=== PATIENT | male | born 1945 | race Caucasian/White ===

== ENCOUNTER 2022-10-08 09:00 | Outpatient (RCR) | payer MEDICARE, BC, SELFPAY ==
--- NOTE | 2022-04-23 13:39 | URNOTE ---
Received request for prior auth for IVIG ([id number]). Pt has Medicare primary and [place] [place]. Prior authorization is not required as services are based on medical necessity and follow medicare guidelines.
[2022-04-25 10:34] VITALS: BP 112/69; PULSE 62; RESP 16; TEMP 36.6; O2SAT 100
[2022-04-25] MEDS: ACETAMINOPHEN 325 MG TABLET 650 MG PO (11:10)
[2022-04-25] MEDS: diphenhydrAMINE 50 MG/ML inj 25 MG IVP (11:10)
[2022-04-25] MEDS: 5 % DEXTROSE 250 ML IV (11:32)
[2022-04-25] MEDS: SODIUM CHLORIDE 0.9 % (FLUSH) 10 ML SYRINGE IVF ×2 (11:32→14:33)
[2022-04-25] MEDS: METHYLPREDNISOLONE SOD SUCC 40 MG/ML IVP (11:47)
[2022-04-25] MEDS: HEPARIN 500 UNIT/5 ML SYRINGE IVF (14:33)
[2022-04-30 07:49] LABS: CMV Quant PCR Interp Detected (Not Detected); Cytomegalovirus Quant Source Whole Blood
[2022-05-07 16:33] LABS: CMV Quant PCR Interp Not Detected (Not Detected); Cytomegalovirus Quant Source Whole Blood
[2022-05-12 14:38] LABS: CMV Quant PCR Interp Not Detected (Not Detected); Cytomegalovirus Quant Source Whole Blood
--- NOTE | 2022-05-17 13:42 | ONC.NURNOTE ---
Addendum entered by Anamika Noriega RN 05/17/22 14:02: Dorita, critical care technician, called specification writer back and states that no orders would be given until the IgG level is resulted. If the level is under 400, they will write a new order for us. Original Note: Patient on schedule for IVIG infusion this coming . No orders are available. LMOM with critical care technician stating that orders are needed in order to infuse.
[2022-05-19 11:08] LABS: CMV Quant PCR Interp Not Detected (Not Detected); Cytomegalovirus Quant Source Whole Blood
[2022-05-23 09:28] LABS: Basophils Percent Auto 1.2 % (0.0-3.0); Eosinophils Percent Auto 0.9 % (0.0-7.0); Hematocrit 30.5 % (37.0-53.0); Hemoglobin* 10.3 gm/dL (13.5-17.5); Lymphocytes Percent Auto 38.7 % (20-44); Mean Corpuscular HGB Conc 34 gm/dL (32-36); Mean Corpuscular Hemoglobin 31 pg (26-34); Mean Corpuscular Volume 91 fL (80-100); Monocytes Percent Auto 15.2 % (0.0-11.0); Platelet Count* 133 K/uL (140-440); Red Blood Count 3.35 m/uL (4.30-5.90); White Blood Count* 3.23 K/uL (4.50-11.00)
[2022-05-23 09:32] LABS: Slide Review Reflex No
[2022-05-23 09:40] LABS: Albumin* 3.9 g/dL (3.3-5.0)
[2022-05-23 09:41] LABS: Chloride* 104 mmol/L (96-114); Potassium* 3.2 mmol/L (3.6-5.1); Sodium* 140 mmol/L (135-149)
[2022-05-23 09:43] LABS: Bilirubin Total* 0.5 mg/dL (0.1-1.5); Estimated Glomerular Filt Rate 77 ml/min
[2022-05-23 09:44] LABS: Alanine Aminotransferase* 19 U/L (4-50); Alkaline Phosphatase* 61 U/L (40-150); Aspartate Amino Transferase* 41 U/L (12-35); Blood Urea Nitrogen* 10 mg/dL (7-30); Calcium* 8.9 mg/dL (8.4-10.6); Carbon Dioxide* 28 mmol/L (20-32); Glucose* 130 mg/dL (60-115); Total Protein* 5.9 g/dL (6.0-8.3)
[2022-05-24 15:10] LABS: Immunoglobulin G 495 mg/dL (768-1632)
[2022-06-27 09:42] VITALS: BP 135/84; PULSE 59; RESP 16; TEMP 36.3; O2SAT 99
[2022-06-27] MEDS: ACETAMINOPHEN 325 MG TABLET 650 MG PO (09:46)
[2022-06-27] MEDS: diphenhydrAMINE 50 MG/ML inj 25 MG IVP ×2 (10:03→12:59)
[2022-06-27] MEDS: METHYLPREDNISOLONE SOD SUCC 40 MG/ML IVP (10:03)
[2022-06-27 12:53] VITALS: BP 163/93; PULSE 59; RESP 18; TEMP 36.6; O2SAT 99
[2022-06-27] MEDS: FAMOTIDINE 10 MG/ML inj 20 MG IVP (13:02)
[2022-06-27] MEDS: METHYLPREDNISOLONE SOD SUCC 62.5 MG/ML (125) 100 MG IVP (13:04)
[2022-06-27 13:06] VITALS: BP 166/84; PULSE 61; RESP 20; TEMP 36.7; O2SAT 100
[2022-06-27 13:20] VITALS: BP 175/91; PULSE 64; RESP 20; TEMP 36.6; O2SAT 99
[2022-06-27 13:30] VITALS: BP 151/87; PULSE 65; RESP 18; TEMP 36.7; O2SAT 99
[2022-06-27] MEDS: HEPARIN 500 UNIT/5 ML SYRINGE IVF (15:14)
[2022-06-27] MEDS: SODIUM CHLORIDE 0.9 % (FLUSH) 10 ML SYRINGE IVF (15:14)
--- NOTE | 2022-06-27 15:56 | ONC.NURNOTE ---
Pt here today for IVIG infusion. Approximately 2 hours into infusion, pt was infusing at 144 ml/hr for 28 min and about to increase to max rate 288 ml/hr, when he noted feeling indigestion/chest pressure/burning in his epigastric/chest. Pt's BP elevated to 180/95, OVSS/Afeb. Stopped infusion; monitored VS q 5 min. Notified Ankita Conroy'jackie ESTEVES; gave 25 mg Benadryl IVP, 20 mg Famotidine IVP and 100 mg Solumedrol IVP; (pt received 650 mg Acetaminophen, 25 mg Benadryl IVP and 40 mg Solumedrol IVP as premeds to IVIG infusion.) Continued to monitor VS; NS IV running wide open. BP improved, pt's symptoms resolved over 1 hr. Restarted IVIG at 72 ml/hr (half of previous rate) and increased incrementally per protocol with VS q 15 min. Pt felt well; no return of symptoms. Pt has monthly labs to monitor IGG levels; no further infusions ordered at this time.
[2022-07-24 09:11] LABS: Eosinophils Percent Auto 5.7 % (0.0-7.0); Hematocrit 32.1 % (37.0-53.0); Hemoglobin* 10.4 gm/dL (13.5-17.5); Immature Granulocytes Pct Auto 0.3 %; Lymphocytes Percent Auto 34.1 % (20-44); Mean Corpuscular HGB Conc 32 gm/dL (32-36); Mean Corpuscular Hemoglobin 28 pg (26-34); Mean Corpuscular Volume 87 fL (80-100); Neutrophils Percent Auto 44.9 % (42.0-72.0); Platelet Count* 133 K/uL (140-440); RDW Coefficient of Variation % 14.2 % (11.5-15.5); Red Blood Count 3.68 m/uL (4.30-5.90); White Blood Count* 2.99 K/uL (4.50-11.00)
[2022-07-24 09:12] LABS: Slide Review Reflex No
[2022-07-25 16:00] LABS: Immunoglobulin G 523 mg/dL (768-1632)
[2022-07-25 19:53] LABS: Absolute CD3 549 cells/uL (660-2200); Absolute CD4:CD8 Ratio 2.64 ratio (0.80-6.17); Absolute CD8 153 cells/uL (150-1050)
[2022-07-27 14:49] LABS: CMV Quant PCR Interp Not Detected (Not Detected); Cytomegalovirus Quant Source Plasma
--- NOTE | 2022-07-29 09:34 | PC.NURSE ---
Called pt with lab results. Leland saw them on his portal. Faxed results to [facility].
[2022-08-23 09:01] LABS: Eosinophils Percent Auto 4.2 % (0.0-7.0); Hematocrit 32.7 % (37.0-53.0); Hemoglobin* 10.7 gm/dL (13.5-17.5); Lymphocytes Percent Auto 28.6 % (20-44); Mean Corpuscular HGB Conc 33 gm/dL (32-36); Mean Corpuscular Hemoglobin 28 pg (26-34); Mean Corpuscular Volume 85 fL (80-100); Neutrophils Percent Auto 52.2 % (42.0-72.0); Platelet Count* 137 K/uL (140-440); RDW Coefficient of Variation % 14.6 % (11.5-15.5); Red Blood Count 3.86 m/uL (4.30-5.90); White Blood Count* 3.85 K/uL (4.50-11.00)
[2022-08-23 09:05] LABS: Slide Review Reflex No
[2022-08-23 09:16] LABS: Albumin* 4.2 g/dL (3.3-5.0)
[2022-08-23 09:18] LABS: Alanine Aminotransferase* 22 U/L (4-50); Alkaline Phosphatase* 62 U/L (40-150); Blood Urea Nitrogen* 14 mg/dL (7-30); Calcium* 9.2 mg/dL (8.4-10.6); Glucose* 105 mg/dL (60-115); Total Protein* 6.3 g/dL (6.0-8.3)
--- NOTE | 2022-08-23 09:19 | ONC.NURNOTE ---
Pt here for monthly labs. Per lab, [facility] changed the name of the test CMV DNA, plasma quant/qual but it has not been built in [facility] yet. Lab order was changed to miscellaneous; results to be found there.
[2022-08-23 09:24] LABS: Aspartate Amino Transferase* 37 U/L (12-35); Bilirubin Total* 0.5 mg/dL (0.1-1.5); Carbon Dioxide* 28 mmol/L (20-32); Chloride* 108 mmol/L (96-114); Estimated Glomerular Filt Rate 77 ml/min; Potassium* 3.6 mmol/L (3.6-5.1); Sodium* 142 mmol/L (135-149)
[2022-08-25 16:20] LABS: Immunoglobulin G 415 mg/dL (768-1632)
[2022-08-25 18:53] LABS: Absolute CD3 1128 cells/uL (660-2200); Absolute CD4:CD8 Ratio 0.69 ratio (0.80-6.17); Absolute CD8 644 cells/uL (150-1050)
--- NOTE | 2022-10-01 11:13 | ONC.NURNOTE ---
Patient called letting [facility] know he was at [facility] for a recheck status post CAR-T transplant and he will need his IVIG. Jacquard Lace Weaver called and requested a new treatment letter. Patient to be called for appointment as soon as it received -no PA needed at this time.
[2022-10-08 09:12] VITALS: BP 133/85; PULSE 64; RESP 16; TEMP 36.6; O2SAT 98
[2022-10-08] MEDS: ACETAMINOPHEN 325 MG TABLET 650 MG PO (09:56)
[2022-10-08] MEDS: METHYLPREDNISOLONE SOD SUCC 40 MG/ML IVP (09:57)
[2022-10-08] MEDS: diphenhydrAMINE 50 MG/ML inj 25 MG IVP (09:58)
[2022-10-08] MEDS: SODIUM CHLORIDE 0.9 % (FLUSH) 10 ML SYRINGE IVF (09:59)
[2022-10-08 13:05] VITALS: BP 184/93; PULSE 67; RESP 18; TEMP 36.6; O2SAT 100
[2022-10-08] MEDS: FAMOTIDINE 10 MG/ML inj 20 MG IVP (14:07)
[2022-10-08 14:55] VITALS: BP 164/84; PULSE 69
--- NOTE | 2022-10-08 16:17 | ONC.NURNOTE ---
Patient put call light on at 1305 after starting IVIG at 1040 complaining of chest pressure. When asking patient to rate it patient states it is a #5 Like ache across upper chest.Blood pressure started out high patient stating that his primary MD has taken his B/P medicine away but he has since put on 20 pounds and has been tracking it at home and its been treading up. Blood pressure started at 170/90 and then patient stated after he went to bathroom it started and then he got back and called us and at that time blood pressure is 184/93-HR 67. IVIG stopped and nurse sat with patient until pain relieved-did give Pepcid 45 minutes after chest pressure started and patient did get a complete relief after getting that. Blood pressure came down a bit but did go up after each episode to bathroom,please see flowsheet of VS. IVIG restarted after 1 hour and just kept at 160/hr without further issues . This is the third incident of chest pressure after 2 hours of IVIG infused. Patient does get pre-meds of Benadryl 25mg IVP-Tylenol 650mg po-Solumedrol 40mg IVP 20 minutes prior to Starting the IVIG Patient is going to talk with primary MD regarding restarting his blood pressure medication but this is third time with chest pressure symptoms.
== END 2022-10-22 23:59 | disposition home or self-care (01) ==
LOC: CCIC 09:00
PROVIDERS: PCP Family Medicine; Referring Provider Family Medicine; Visit Provider Internal Medicine Hematology & Oncology
DX: C83.30 Diffuse large B-cell lymphoma, unspecified site (principal); D80.1 Nonfamilial hypogammaglobulinemia; C82.30 Follicular lymphoma grade IIIa, unspecified site
CPT/HCPCS: 36415; 36591; 80053; 82787; 85025; 86360; 87497; 96365; 96366; 96376; 96413; 96415; 99212; 99213; A9270; J1200; J1459; J1642; J2920; J2930; J7050; S0028

== ENCOUNTER 2023-03-03 13:55 | Outpatient (RCR) | payer MEDICARE, BC, SELFPAY ==
[2022-10-28 14:52] VITALS: BP 168/96; PULSE 64; RESP 18; O2SAT 100
[2022-10-28 14:53] VITALS: BP 173/102
[2022-10-28 14:57] LABS: Basophils Percent Auto 0.7 % (0.0-3.0); Eosinophils Percent Auto 6.5 % (0.0-7.0); Hematocrit 33.9 % (37.0-53.0); Hemoglobin* 11.2 gm/dL (13.5-17.5); Lymphocytes Percent Auto 33.4 % (20-44); Mean Corpuscular HGB Conc 33 gm/dL (32-36); Mean Corpuscular Hemoglobin 28 pg (26-34); Mean Corpuscular Volume 86 fL (80-100); Monocytes Percent Auto 11.5 % (0.0-11.0); Neutrophils Percent Auto 47.9 % (42.0-72.0); Platelet Count* 130 K/uL (140-440); RDW Coefficient of Variation % 17.2 % (11.5-15.5); Red Blood Count 3.94 m/uL (4.30-5.90); White Blood Count* 4.16 K/uL (4.50-11.00)
[2022-10-28 15:01] LABS: Slide Review Reflex No
[2022-10-28 15:17] LABS: Albumin* 4.1 g/dL (3.3-5.0); Chloride* 107 mmol/L (96-114)
[2022-10-28 15:18] LABS: Potassium* 3.5 mmol/L (3.6-5.1); Sodium* 141 mmol/L (135-149)
[2022-10-28 15:20] LABS: Alanine Aminotransferase* 31 U/L (4-50); Alkaline Phosphatase* 68 U/L (40-150); Aspartate Amino Transferase* 52 U/L (12-35); Bilirubin Total* 0.5 mg/dL (0.1-1.5); Blood Urea Nitrogen* 16 mg/dL (7-30); Carbon Dioxide* 28 mmol/L (20-32); Estimated Glomerular Filt Rate 77 ml/min; Glucose* 95 mg/dL (60-115); Total Protein* 6.5 g/dL (6.0-8.3)
[2022-10-30 22:48] LABS: Immunoglobulin G 495 mg/dL (768-1632)
--- NOTE | 2022-11-04 16:00 | PC.NURSE ---
Pt was present at [facility] on 10/28/2022 for labs and port flush. Orders in chart are for CBC/diff, CMP, IgG, & TBNK Panel (for CD4 count). RN spoke with lab when pt was present to understand how to order and which tube to draw for the TBNK Panel. Spoke with Jeannie who did some investigating and directed this promotion writer as to what to do. Checked chart today and noted that there are no results for the TBNK Panel. Called lab and was told that it had been cancelled. Waiting to hear back from [facility] lab as they were going to do some further investigation into this issue. Resulted labs (CBC/diff, CMP, & IgG) were faxed to Dr. Torres at [facility] in [place].
--- NOTE | 2022-11-07 09:58 | ONC.NURNOTE ---
Addendum entered by Tamiko Folwer RN 11/07/22 10:08: Updated Summer that we will redraw him tomorrow and send results when they are done Her direct number is [phone] Original Note: Following up on labs from 10/28 after receiving call from Summer (Dr. Torres's nurse) that patient had drawn. After checking with lab the test for CMV and CD4 was drawn but cancelled when it went to lab. Patient coming in 11/08 for redraw To help with further testing codes for test from [facility] are: CMVQnt [id number]
[2022-11-10 16:53] LABS: Absolute CD3 968 cells/uL (660-2200); Absolute CD4:CD8 Ratio 0.71 ratio (0.80-6.17); Absolute CD8 570 cells/uL (150-1050)
[2022-11-11 10:19] LABS: CMV Qnt Plasma IU/mL Not Detected; CMV Qnt Plasma Interp Not Detected (Not Detected); CMV Qnt Plasma log IU/mL Not Detected
[2022-11-25 14:26] LABS: Basophils Percent Auto 0.7 % (0.0-3.0); Eosinophils Percent Auto 3.6 % (0.0-7.0); Hematocrit 35.2 % (37.0-53.0); Hemoglobin* 11.9 gm/dL (13.5-17.5); Immature Granulocytes Pct Auto 0.2 %; Lymphocytes Percent Auto 30.7 % (20-44); Mean Corpuscular HGB Conc 34 gm/dL (32-36); Mean Corpuscular Hemoglobin 30 pg (26-34); Mean Corpuscular Volume 88 fL (80-100); Monocytes Percent Auto 12.7 % (0.0-11.0); Neutrophils Percent Auto 52.1 % (42.0-72.0); Platelet Count* 127 K/uL (140-440); RDW Coefficient of Variation % 17.1 % (11.5-15.5); Red Blood Count 3.99 m/uL (4.30-5.90); White Blood Count* 4.49 K/uL (4.50-11.00)
[2022-11-25 14:32] LABS: Slide Review Reflex No
[2022-11-25 14:38] LABS: Albumin* 4.1 g/dL (3.3-5.0); Chloride* 105 mmol/L (96-114)
[2022-11-25 14:39] LABS: Potassium* 3.7 mmol/L (3.6-5.1)
[2022-11-25 14:41] LABS: Alanine Aminotransferase* 26 U/L (4-50); Alkaline Phosphatase* 61 U/L (40-150); Aspartate Amino Transferase* 45 U/L (12-35); Bilirubin Total* 0.6 mg/dL (0.1-1.5); Blood Urea Nitrogen* 17 mg/dL (7-30); Carbon Dioxide* 29 mmol/L (20-32); Creatinine* 1.1 mg/dL (0.5-1.5); Estimated Glomerular Filt Rate 69 ml/min; Total Protein* 6.4 g/dL (6.0-8.3)
[2022-11-25 14:42] LABS: Calcium* 9.4 mg/dL (8.4-10.6); Glucose* 81 mg/dL (60-115)
[2022-11-25 14:55] LABS: Sodium* 139 mmol/L (135-149)
[2022-11-26 20:02] LABS: Absolute CD3 1314 cells/uL (660-2200); Absolute CD4:CD8 Ratio 0.62 ratio (0.80-6.17); Absolute CD8 774 cells/uL (150-1050)
[2022-11-27 05:31] LABS: Immunoglobulin G 390 mg/dL (768-1632)
[2022-12-04 08:57] VITALS: BP 134/83; PULSE 70; RESP 16; TEMP 36.1; O2SAT 98
[2022-12-04] MEDS: ACETAMINOPHEN 325 MG TABLET 650 MG PO (09:35)
[2022-12-04] MEDS: FAMOTIDINE 20 MG, diphenhydrAMINE 25 MG in 0.9 % SODIUM CHLORIDE 100 ml 100 ML 410 MG IVPB (09:53)
[2022-12-04] MEDS: METHYLPREDNISOLONE SOD SUCC 40 MG/ML IVP (09:55)
[2022-12-06 23:07] LABS: CMV Qnt Plasma IU/mL Not Detected; CMV Qnt Plasma Interp Not Detected (Not Detected); CMV Qnt Plasma log IU/mL Not Detected
--- NOTE | 2022-12-09 10:15 | PC.NURSE ---
Faxed CMV results to [place].
[2023-01-30 14:30] LABS: Basophils Percent Auto 0.5 % (0.0-3.0); Eosinophils Percent Auto 3.7 % (0.0-7.0); Hematocrit 35.8 % (37.0-53.0); Hemoglobin* 12.2 gm/dL (13.5-17.5); Immature Granulocytes Pct Auto 0.2 %; Mean Corpuscular HGB Conc 34 gm/dL (32-36); Mean Corpuscular Hemoglobin 32 pg (26-34); Mean Corpuscular Volume 93 fL (80-100); Monocytes Percent Auto 14.3 % (0.0-11.0); Neutrophils Percent Auto 50.3 % (42.0-72.0); Platelet Count* 129 K/uL (140-440); RDW Coefficient of Variation % 14.8 % (11.5-15.5); Red Blood Count 3.86 m/uL (4.30-5.90); White Blood Count* 4.06 K/uL (4.50-11.00)
[2023-01-30 14:49] LABS: Slide Review Reflex No
[2023-02-01 17:16] LABS: Absolute CD3 1418 cells/uL (660-2200); Absolute CD4:CD8 Ratio 0.59 ratio (0.80-6.17); Absolute CD8 830 cells/uL (150-1050)
[2023-02-01 20:15] LABS: Immunoglobulin G 368 mg/dL (768-1632)
[2023-02-09 00:48] LABS: CMV Qnt Plasma IU/mL Not Detected; CMV Qnt Plasma Interp Not Detected (Not Detected); CMV Qnt Plasma log IU/mL Not Detected log IU/mL
[2023-02-12 10:07] VITALS: BP 143/84; PULSE 51; RESP 16; TEMP 35.7; O2SAT 99
[2023-02-12] MEDS: ACETAMINOPHEN 325 MG TABLET 650 MG PO (11:04)
[2023-02-12] MEDS: METHYLPREDNISOLONE SOD SUCC 40 MG/ML IVP (11:05)
[2023-02-12] MEDS: FAMOTIDINE 20 MG, diphenhydrAMINE 25 MG in 0.9 % SODIUM CHLORIDE 100 ml 100 ML 410 MG IVPB (11:05)
[2023-03-03 15:10] LABS: Eosinophils Percent Auto 1.8 % (0.0-7.0); Hematocrit 35.8 % (37.0-53.0); Hemoglobin* 12.3 gm/dL (13.5-17.5); Mean Corpuscular HGB Conc 34 gm/dL (32-36); Mean Corpuscular Hemoglobin 32 pg (26-34); Mean Corpuscular Volume 94 fL (80-100); Neutrophils Percent Auto 55.3 % (42.0-72.0); Platelet Count* 134 K/uL (140-440); RDW Coefficient of Variation % 13.6 % (11.5-15.5); Red Blood Count 3.81 m/uL (4.30-5.90); White Blood Count* 5.09 K/uL (4.50-11.00)
[2023-03-03 15:11] LABS: Basophils Absolute Auto 0.08 K/uL (0.00-0.30); Basophils Percent Auto 1.6 % (0.0-3.0); Eosinophils Absolute Auto 0.09 K/uL (0.00-0.50); Immature Granulocytes Abs Auto 0.27 K/uL (0.00-0.30); Immature Granulocytes Pct Auto 5.3 %; Lymphocytes Absolute Auto 1.27 K/uL (0.90-2.90); Neutrophils Absolute Auto 2.82 K/uL (1.7-7.0)
[2023-03-03 15:13] LABS: Slide Review Reflex No
[2023-03-03 15:17] LABS: Albumin* 4.1 g/dL (3.3-5.0); Chloride* 105 mmol/L (96-114)
[2023-03-03 15:18] LABS: Potassium* 3.6 mmol/L (3.6-5.1); Sodium* 137 mmol/L (135-149)
[2023-03-03 15:20] LABS: Alkaline Phosphatase* 66 U/L (40-150); Aspartate Amino Transferase* 53 U/L (12-35); Bilirubin Total* 0.6 mg/dL (0.1-1.5); Blood Urea Nitrogen* 14 mg/dL (7-30); Carbon Dioxide* 28 mmol/L (20-32); Creatinine* 1.1 mg/dL (0.5-1.5); Estimated Glomerular Filt Rate 68 ml/min; Total Protein* 6.4 g/dL (6.0-8.3)
[2023-03-03 15:21] LABS: Alanine Aminotransferase* 31 U/L (4-50); Calcium* 9.1 mg/dL (8.4-10.6); Glucose* 93 mg/dL (60-115)
[2023-03-05 23:43] LABS: Immunoglobulin G 535 mg/dL (768-1632)
[2023-03-06 02:56] LABS: CMV Qnt Plasma IU/mL Not Detected; CMV Qnt Plasma Interp Not Detected (Not Detected); CMV Qnt Plasma log IU/mL Not Detected log IU/mL
[2023-03-06 08:32] LABS: Absolute CD3 1060 cells/uL (660-2200); Absolute CD8 608 cells/uL (150-1050)
== END 2023-04-26 23:59 | disposition home or self-care (01) ==
LOC: CCIC 13:55
PROVIDERS: Clinical Nurse Specialist; PCP Family Medicine; Referring Provider Family Medicine; Visit Provider Internal Medicine Hematology & Oncology
DX: D80.1 Nonfamilial hypogammaglobulinemia (principal); C83.31 Diffuse large B-cell lymphoma, lymph nodes of head, face, and neck
CPT/HCPCS: 36415; 36591; 80053; 82787; 85025; 86360; 86644; 86645; 87497; 96365; 96366; 96376; A9270; J1200; J1459; J2920; S0028

== ENCOUNTER 2023-10-23 11:30 | Outpatient (RCR) | payer MEDICARE, BC, SELFPAY ==
[2023-04-29 10:19] LABS: Basophils Absolute Auto 0.02 K/uL (0.00-0.30); Basophils Percent Auto 0.4 % (0.0-3.0); Eosinophils Absolute Auto 0.25 K/uL (0.00-0.50); Hematocrit 39.9 % (37.0-53.0); Immature Granulocytes Abs Auto 0.01 K/uL (0.00-0.30); Immature Granulocytes Pct Auto 0.2 %; Lymphocytes Absolute Auto 1.48 K/uL (0.90-2.90); Lymphocytes Percent Auto 29.8 % (20-44); Mean Corpuscular HGB Conc 33 gm/dL (32-36); Mean Corpuscular Hemoglobin 31 pg (26-34); Mean Corpuscular Volume 96 fL (80-100); Monocytes Percent Auto 10.5 % (0.0-11.0); Neutrophils Absolute Auto 2.69 K/uL (1.7-7.0); Neutrophils Percent Auto 54.1 % (42.0-72.0); Platelet Count* 151 K/uL (140-440); RDW Coefficient of Variation % 13.7 % (11.5-15.5); Red Blood Count 4.16 m/uL (4.30-5.90); White Blood Count* 4.97 K/uL (4.50-11.00)
[2023-04-29 10:50] LABS: Slide Review Reflex No
[2023-04-30 23:06] LABS: Immunoglobulin G 276 mg/dL (768-1632)
[2023-05-01 14:44] LABS: CMV Qnt Plasma IU/mL Not Detected; CMV Qnt Plasma Interp Not Detected (Not Detected); CMV Qnt Plasma log IU/mL Not Detected log IU/mL
[2023-05-01 17:19] LABS: Absolute CD3 1469 cells/uL (660-2200); Absolute CD4:CD8 Ratio 0.72 ratio (0.80-6.17); Absolute CD8 777 cells/uL (150-1050)
--- NOTE | 2023-05-02 09:37 | ONC.NURNOTE ---
04/28/[address] Jorgensen.
--- NOTE | 2023-05-02 12:32 | URNOTE ---
Received request for prior authorization for IVIG ([id number]). Pt has Medicare primary and [place]. Prior authorization is not required as services are based on medical necessity and follow medicare guidelines.
[2023-05-06 11:14] VITALS: BP 146/91; PULSE 58; RESP 14; TEMP 36.5; O2SAT 97
[2023-05-06] MEDS: ALTEPLASE 2 MG INJ IVF (11:42)
[2023-05-06] MEDS: ACETAMINOPHEN 325 MG TABLET 650 MG PO (11:43)
[2023-05-06] MEDS: METHYLPREDNISOLONE SOD SUCC 62.5 MG/ML (125) 40 MG IVP (11:59)
[2023-05-06] MEDS: FAMOTIDINE 20 MG, diphenhydrAMINE 25 MG in 0.9 % SODIUM CHLORIDE 100 ml 100 ML 410 MG IVPB (11:59)
--- NOTE | 2023-05-06 14:15 | ONC.NURNOTE ---
Patient complained of a little chest discomfort (I think it's indigestion) again when time to move up infusion to his max rate. Blood pressure was elevated and patient stated I did take a TUMS so that should kick in. Heart rate regular Decision to leave the rate at 80mg instead of 160
[2023-05-06 15:10] VITALS: BP 145/89; PULSE 62; TEMP 36.6
[2023-05-29 12:24] LABS: Basophils Percent Auto 0.5 % (0.0-3.0); Eosinophils Percent Auto 2.9 % (0.0-7.0); Hemoglobin* 12.4 gm/dL (13.5-17.5); Lymphocytes Percent Auto 35.1 % (20-44); Mean Corpuscular HGB Conc 34 gm/dL (32-36); Mean Corpuscular Hemoglobin 31 pg (26-34); Mean Corpuscular Volume 91 fL (80-100); Monocytes Percent Auto 13.3 % (0.0-11.0); Neutrophils Percent Auto 48.2 % (42.0-72.0); Platelet Count* 140 K/uL (140-440); RDW Coefficient of Variation % 13.9 % (11.5-15.5); Red Blood Count 4.05 m/uL (4.30-5.90); White Blood Count* 4.44 K/uL (4.50-11.00)
[2023-05-29 12:28] LABS: Slide Review Reflex No
[2023-05-31 13:33] LABS: Absolute CD3 1798 cells/uL (660-2200); Absolute CD4:CD8 Ratio 0.57 ratio (0.80-6.17); Absolute CD8 1102 cells/uL (150-1050)
[2023-06-03 15:17] LABS: Immunoglobulin G 448
[2023-06-05 01:28] LABS: CMV Qnt Plasma IU/mL Not Quantified IU/mL; CMV Qnt Plasma Interp Detected (Not Detected); CMV Qnt Plasma log IU/mL Not Quantified log IU/mL
[2023-06-26 12:02] LABS: Basophils Absolute Auto 0.03 K/uL (0.00-0.30); Basophils Percent Auto 0.6 % (0.0-3.0); Eosinophils Percent Auto 7.5 % (0.0-7.0); Hematocrit 37.7 % (37.0-53.0); Hemoglobin* 12.6 gm/dL (13.5-17.5); Lymphocytes Percent Auto 36.6 % (20-44); Mean Corpuscular HGB Conc 33 gm/dL (32-36); Mean Corpuscular Hemoglobin 31 pg (26-34); Mean Corpuscular Volume 93 fL (80-100); Monocytes Percent Auto 12.3 % (0.0-11.0); Platelet Count* 134 K/uL (140-440); RDW Coefficient of Variation % 14.4 % (11.5-15.5); Red Blood Count 4.05 m/uL (4.30-5.90); White Blood Count* 4.65 K/uL (4.50-11.00)
[2023-06-26] MEDS: SODIUM CHLORIDE 0.9 % (FLUSH) 10 ML SYRINGE IVF (12:03)
[2023-06-26] MEDS: HEPARIN 500 UNIT/5 ML SYRINGE IVF (12:03)
[2023-06-26 12:04] LABS: Slide Review Reflex No
[2023-06-27 19:48] LABS: Absolute CD3 1785 cells/uL (660-2200); Absolute CD8 1038 cells/uL (150-1050)
[2023-06-27 23:16] LABS: Immunoglobulin G 334 mg/dL (768-1632)
[2023-06-28 14:32] LABS: CMV Qnt Plasma IU/mL Not Detected; CMV Qnt Plasma Interp Not Detected (Not Detected); CMV Qnt Plasma log IU/mL Not Detected log IU/mL
--- NOTE | 2023-07-08 10:06 | ONC.NURNOTE ---
Pt left message asking if our office would be able to order Lorazepam for the days after receiving IVIG. Pt did contact his [place] team and they informed him Dr. Ge is the ordering provider of the IVIG and may be able to order Lorazepam. Quality Control Analyst discussed with Ruthie Hahn APRN, and [facility] has been initiating the IVIG with a treatment letter and our office has been co-signing the order for pt to receive infusion at our facility. It would be more appropriate for the [place] team or pt's tents assembler to order this for him. Quality Control Analyst left message with [facility] to contact pt regarding Lorazepam.
[2023-07-11 09:28] VITALS: BP 127/90; PULSE 73; RESP 16; TEMP 35.2; O2SAT 95
[2023-07-11] MEDS: METHYLPREDNISOLONE SOD SUCC 62.5 MG/ML (125) 40 MG IVP (10:34)
[2023-07-11] MEDS: FAMOTIDINE 20 MG, diphenhydrAMINE 25 MG in 0.9 % SODIUM CHLORIDE 100 ml 100 ML 410 MG IVPB (10:34)
[2023-07-11] MEDS: ACETAMINOPHEN 325 MG TABLET 650 MG PO (10:34)
[2023-07-11 13:30] VITALS: BP 146/88; PULSE 60; RESP 18; O2SAT 98
[2023-07-11] MEDS: MAG HYDROX/ALUMINUM HYD/SIMETH 30 ML ORAL.SUSP PO (13:34)
[2023-07-11 14:41] VITALS: BP 150/89; PULSE 63; RESP 16; TEMP 37.1; O2SAT 95
[2023-07-11] MEDS: SODIUM CHLORIDE 0.9 % (FLUSH) 10 ML SYRINGE IVF (14:41)
[2023-07-11] MEDS: HEPARIN 500 UNIT/5 ML SYRINGE IVF (14:41)
--- NOTE | 2023-07-11 16:02 | ONC.NURNOTE ---
At 1325, pt c/o indigestion. Pt stated this indigestion started 20 min before mentioning to nursing. Rating 11/22. IVIG stopped, video games storywriter had Ruthie Hahn APRN assess pt. Maalox 30cc given at 1335, pt observed for 15 min. Pt stated Maalox did help. IVIG resumed at 160ml/hr and completed. No further symptoms.
[2023-08-25 09:40] LABS: Basophils Percent Auto 0.5 % (0.0-3.0); Eosinophils Percent Auto 2.9 % (0.0-7.0); Hematocrit 35.5 % (37.0-53.0); Hemoglobin* 12.1 gm/dL (13.5-17.5); Immature Granulocytes Pct Auto 0.2 %; Lymphocytes Percent Auto 37.3 % (20-44); Mean Corpuscular HGB Conc 34 gm/dL (32-36); Mean Corpuscular Hemoglobin 31 pg (26-34); Mean Corpuscular Volume 92 fL (80-100); Monocytes Percent Auto 11.5 % (0.0-11.0); Neutrophils Percent Auto 47.6 % (42.0-72.0); Platelet Count* 143 K/uL (140-440); RDW Coefficient of Variation % 13.8 % (11.5-15.5); Red Blood Count 3.85 m/uL (4.30-5.90)
[2023-08-25 09:42] LABS: Slide Review Reflex No
[2023-08-25] MEDS: SODIUM CHLORIDE 0.9 % (FLUSH) 10 ML SYRINGE IVF (10:28)
[2023-08-25] MEDS: HEPARIN 500 UNIT/5 ML SYRINGE IVF (15:27)
[2023-08-26 19:31] LABS: Absolute CD3 1585 cells/uL (660-2200); Absolute CD8 945 cells/uL (150-1050)
[2023-08-27 04:59] LABS: Immunoglobulin G 384 mg/dL (768-1632)
[2023-08-27 05:06] LABS: CMV Antibody IgM <8.0 AU/mL (<=29.9)
[2023-09-04 08:53] VITALS: BP 144/84; PULSE 66; RESP 17; TEMP 36.1; O2SAT 99
[2023-09-04] MEDS: ACETAMINOPHEN 325 MG TABLET 650 MG PO (09:26)
[2023-09-04] MEDS: FAMOTIDINE 20 MG, diphenhydrAMINE 25 MG in 0.9 % SODIUM CHLORIDE 100 ml 100 ML 410 MG IVPB (09:27)
[2023-09-04] MEDS: METHYLPREDNISOLONE SOD SUCC 40 MG/ML IVP (09:27)
[2023-09-04] MEDS: HEPARIN 500 UNIT/5 ML SYRINGE IVF (13:00)
[2023-09-04] MEDS: SODIUM CHLORIDE 0.9 % (FLUSH) 10 ML SYRINGE IVF (13:01)
[2023-09-27 02:08] LABS: Immunoglobulin G 552 mg/dL (768-1632)
[2023-10-23] MEDS: SODIUM CHLORIDE 0.9 % (FLUSH) 10 ML SYRINGE IVF (11:52)
[2023-10-23] MEDS: HEPARIN 500 UNIT/5 ML SYRINGE IVF (11:52)
[2023-10-25 00:55] LABS: Immunoglobulin G 403 mg/dL (768-1632)
== END 2023-10-25 23:59 | disposition home or self-care (01) ==
LOC: CCIC 11:30
PROVIDERS: PCP Family Medicine; Referring Provider Family Medicine; Visit Provider Internal Medicine Hematology & Oncology
DX: D80.1 Nonfamilial hypogammaglobulinemia (principal); C83.31 Diffuse large B-cell lymphoma, lymph nodes of head, face, and neck; C82.98 Follicular lymphoma, unspecified, lymph nodes of multiple sites
CPT/HCPCS: 36415; 36591; 36592; 80053; 82728; 82787; 83615; 85025; 86360; 86644; 86645; 87497; 96365; 96366; 96376; 99211; A9270; J1200; J1459; J1642; J2920; J2930; J2997; S0028

== ENCOUNTER 2024-01-12 14:30 | Outpatient (RCR) | payer MEDICARE, BC, SELFPAY ==
[2023-11-19 08:43] VITALS: BP 124/86; PULSE 68; RESP 16; TEMP 36.7; O2SAT 99
[2023-11-19 09:05] VITALS: TEMP 36.7
[2023-11-19] MEDS: ACETAMINOPHEN 325 MG TABLET 650 MG PO (09:05)
[2023-11-19] MEDS: METHYLPREDNISOLONE SOD SUCC 40 MG/ML IVP (09:28)
[2023-11-19] MEDS: FAMOTIDINE 20 MG, diphenhydrAMINE 25 MG in 0.9 % SODIUM CHLORIDE 100 ml 100 ML 410 MG IVPB (09:32)
[2023-11-19] MEDS: 0.9 % SODIUM CHLORIDE 250 ml IV (12:53)
[2023-11-19] MEDS: SODIUM CHLORIDE 0.9 % (FLUSH) 10 ML SYRINGE IVF (12:53)
[2023-11-19] MEDS: HEPARIN 500 UNIT/5 ML SYRINGE IVF (12:53)
[2023-12-19 00:13] LABS: Immunoglobulin G 401 mg/dL (768-1632)
--- NOTE | 2023-12-23 09:51 | ONC.NURNOTE ---
IgG results results to [facility].
[2024-01-15 00:56] LABS: Immunoglobulin G 291 mg/dL (768-1632)
== END 2024-01-24 23:59 | disposition home or self-care (01) ==
LOC: CCIC 14:30
PROVIDERS: PCP Family Medicine; Referring Provider Family Medicine; Visit Provider Internal Medicine Hematology & Oncology
DX: D80.1 Nonfamilial hypogammaglobulinemia (principal); C83.31 Diffuse large B-cell lymphoma, lymph nodes of head, face, and neck; C82.98 Follicular lymphoma, unspecified, lymph nodes of multiple sites
CPT/HCPCS: 36415; 36591; 82787; 96365; 96366; 96376; A9270; J1200; J1459; J1642; J2920; J7050; S0028

== ENCOUNTER 2024-01-13 14:19 | Outpatient (RCR) | payer MEDICARE, BC, SELFPAY ==
--- NOTE | 2024-01-15 10:57 | ONC.NURNOTE ---
Reviewed IGG results of 291 with pt and need for scheduling IVIG infusion. Scheduled for 01/20 per pt availability. Lab result faxed to [facility].
== END 2024-01-27 14:52 | disposition home or self-care (01) ==
PROVIDERS: PCP Family Medicine; Visit Provider Family Medicine
DX: M54.2 Cervicalgia (principal); R29.3 Abnormal posture; Z51.89 Encounter for other specified aftercare
CPT/HCPCS: 97110; 97140; 97162

== ENCOUNTER 2024-01-20 13:44 | Emergency (ER) | payer MEDICARE, BC, SELFPAY ==
[2024-01-20] VITALS (31 sets, daily range): BP systolic 116–138; BP diastolic 64–77; PULSE 86–110; RESP 22–41; TEMP 37–38.4; O2SAT 82–98
--- NOTE | 2024-01-20 14:09 | ED_ITS ---
HPI - SOB/Dyspnea General Date Seen: 01/20/24 <Edmundo Chávez MD - Last Filed: 01/20/24 16:36> Chief Complaint: Shortness of Breath/Dyspnea <Edmundo Chávez MD - Last Filed: 01/20/24 16:36> Stated Complaint: Cough, weakness, short of breath <Edmundo Chávez MD - Last Filed: 01/20/24 16:36> Time Seen by Provider: 01/20/24 13:57 <Edmundo Chávez MD - Last Filed: 01/20/24 16:36> Source: patient and family <Edmundo Chávez MD - Last Filed: 01/20/24 16:36> Mode of arrival: wheelchair <Edmundo Chávez MD - Last Filed: 01/20/24 16:36> Limitations: no limitations <Edmundo Chávez MD - Last Filed: 01/20/24 16:36> History of Present Illness HPI Narrative: Pt has had a cold [id number]. Last few days patient has been very weak, unsteady. Was hypoxic at the [facility] today. Has had worsening dry cough. 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 And shortness of breath. He was seen in urgent care and transferred over by private vehicle to the hospital. Six weeks ago his oxygen saturations were normal. Now he is 80% on room air, eating and drinking has been less over this time. He did not complain about any chest pain, he was so weak that he fell yesterday which is abnormal for him. He fell on his left side of his head, and his right knee. He was able to walk around after does not really have a headache or visual problems or neck pain associated with this. He is not on anticoagulants. No recent travel history, he is however immunosuppressed, has a history of non-Hodgkin's lymphoma, and gets periodic IVIG treatments, and had a recent antigen receptor T-cell therapy. Is followed at the [facility] for this. No significant cardiac or rheumatologic history. Past history of lymph node dissection, left knee arthroscopy right shoulder arthroscopy right knee arthroscopy and left knee arthroscopy. History of arthritis of the left hand, vasovagal symptoms, primary hyperparath yroidism, non-Hodgkin's lymphoma, history of hypercalcemia, history of acute kidney failure, history of follicular lymphoma grade 3A. And diffuse large B- cell lymphoma. Medications are reviewed. <Edmundo Chávez MD - Last Filed: 01/20/24 16:36> MD elicited complaint: shortness of breath and cough <Edmundo Chávez MD - Last Filed: 01/20/24 16:36> Onset (ago): day(s) (5-7 days) <Edmundo Chávez MD - Last Filed: 01/20/24 16:36> Timing: progressively worsening <Edmundo Chávez MD - Last Filed: 01/20/24 16:36> Severity: moderate <Edmundo Chávez MD - Last Filed: 01/20/24 16:36> Exacerbating factors: nothing <Edmundo Chávez MD - Last Filed: 01/20/24 16:36> Relieving factors: nothing <Edmundo Chávez MD - Last Filed: 01/20/24 16:36> Associated symptoms: cough, sputum production and syncope <Edmundo Chávez MD - Last Filed: 01/20/24 16:36> Treatment prior to arrival: none <Edmundo Chávez MD - Last Filed: 01/20/24 16:36> Related Data Home oxygen amount: none <Edmundo Chávez MD - Last Filed: 01/20/24 16:36> Home Medications: Home Medications Medication Instructions Recorded Confirmed acetaminophen 500 mg capsule 500 mg PO Q4-6H PRN 04/25/22 01/20/24 ascorbic acid (vitamin C) 500 mg 500 mg PO DAILY 04/25/22 01/20/24 capsule atorvastatin 20 mg tablet 20 mg PO .am 04/25/22 01/20/24 bisacodyl 10 mg rectal suppository 10 mg NV DAILY PRN 04/25/22 01/20/24 cetirizine 10 mg tablet 10 mg PO DAILY PRN 04/25/22 01/20/24 cholecalciferol (vitamin D3) 50 50 mcg PO DAILY 04/25/22 01/20/24 mcg (2,000 unit) capsule multivitamin 1 tab PO DAILY 04/25/22 01/20/24 omeprazole 20 mg capsule,delayed 20 mg PO DAILY 04/25/22 01/20/24 release polyethylene glycol 3350 17 17 g PO DAILY 04/25/22 11/19/23 gram/dose oral powder (Miralax) amlodipine 2.5 mg tablet 2.5 mg PO DAILY 10/08/23 01/20/24 naproxen .ROUTE 01/20/24 <Edmundo Chávez MD - Last Filed: 01/20/24 16:36> Allergies/Adverse Reactions: Allergies Allergy/AdvReac Type Severity Reaction Status Date / Time codeine Allergy Mild Nausea Verified 11/19/23 11:22 hydrocodone Allergy Mild Nausea Verified 11/19/23 11:22 oxycodone Allergy Mild Nausea Verified 11/19/23 11:22 indomethacin AdvReac Mild Verified 11/19/23 11:22 pegfilgrastim AdvReac Mild facial Verified 11/19/23 11:22 flushing <Edmundo Chávez MD - Last Filed: 01/20/24 16:36> Review of Systems Const: Reports: change in weight, fatigue and malaise <Edmundo Chávez MD - Last Filed: 01/20/24 16:36> Cardio: Reports: shortness of breath with exertion <Edmundo Chávez MD - Last Filed: 01/20/24 16:36> Resp: Reports: shortness of breath <Edmundo Chávez MD - Last Filed: 01/20/24 16:36> Endo: Reports: fatigue <Edmundo Chávez MD - Last Filed: 01/20/24 16:36> [employer] [facility] Medical History: Medical History Follicular lymphoma grade 3a ?C82.30 - Follicular lymphoma grade IIIa, unspecified site (ICD-10) History of chimeric antigen receptor T-cell therapy ?Z92.850 - Personal history of Chimeric Antigen Receptor T-cell therapy (ICD- 10) <Edmundo Chávez MD - Last Filed: 01/20/24 16:36> Surgical History: Surgical History History of lymph node excision (12/27/21) ?Z98.890 - Other specified postprocedural states (ICD-10) S/P left knee arthroscopy (08/20/16) ?Z98.890 - Other specified postprocedural states (ICD-10) S/P arthroscopy of right shoulder (12/23/02) ?Z98.890 - Other specified postprocedural states (ICD-10) S/P right knee arthroscopy (08/16/96) ?Z98.890 - Other specified postprocedural states (ICD-10) S/P left knee arthroscopy (12/22/89) ?Z98.890 - Other specified postprocedural states (ICD-10) <Edmundo Chávez MD - Last Filed: 01/20/24 16:36> Social History: Social History Smoking Status: Unknown if ever smoked <Edmundo Chávez MD - Last Filed: 01/20/24 16:36> Exam Narrative: Exam Narrative: Patient is a very nice gentleman who presents here speaking to me normally he is currently on 2 L of oxygen, his normal saturations are around 96%. Speaking to me in full sentences looks a little bit weak pupils equal round reactive to light he has some bruising and petechiae noted around the left side of his face across the bridge of his nose. From a fall that occurred yesterday. He did not lose conscious him was more of a weakness associated with this. He did bump his right knee, and skin the side of his nose. His pupils are equal round reactive to light he tracks normally with absence of nystagmus is TMs are normal his oropharynx is normal although he looks a little pale. Neck is supple cranial nerves 3-12 are normal, no tenderness over his neck on palpation his lungs have crackles bilaterally in the lower lung levels I thought initially that there was a little bit more dullness to percussion on the left than the right, tactile fremitus was negative. He does have a systolic murmur that goes from the mitral area are apex to the left axilla. I would described as 2/4. S1-S2 are normal, there is no S3-S4 clicks murmurs or gallops, JVP is slightly elevated to 2-3 cm. His abdomen is soft there is no guarding no organomegaly noted. Bowel sounds are normal rectal exam shows no evidence of blood, Hemoccult is done and pending. Moves all extremities independently well is some bruising on his right chin. From a fall but neurologically he is intact. <Edmundo Chávez MD - Last Filed: 01/20/24 16:36> Const: Vital Signs, click to edit/add: Vital Signs - 24 hr 01/20/24 13:47 01/20/24 13:55 01/20/24 14:00 Temperature 100.5 F H Pulse Rate Pulse Rate [Pulse Oximeter] 99 Respiratory Rate 24 Blood Pressure Blood Pressure [Ri ght Upper Arm] 121/66 Pulse Oximetry 87 L 82 L 94 Oxygen Delivery Me thod Room Air Room Air Nasal Cannula Oxygen Flow Rate 2 01/20/24 14:07 01/20/24 14:15 01/20/24 14:19 Temperature Pulse Rate 95 102 H Pulse Rate [Pulse Oximeter] Respiratory Rate Blood Pressure Blood Pressure [Ri ght Upper Arm] Pulse Oximetry 98 96 94 Oxygen Delivery Me thod Nasal Cannula Nasal Cannula Oxygen Flow Rate 2 2 01/20/24 14:19 01/20/24 14:30 01/20/24 14:32 Temperature Pulse Rate 93 95 Pulse Rate [Pulse Oximeter] Respiratory Rate 26 H Blood Pressure 123/75 Blood Pressure [Ri ght Upper Arm] Pulse Oximetry 95 95 95 Oxygen Delivery Me thod Nasal Cannula Nasal Cannula Nasal Cannula Oxygen Flow Rate 2 2 2 01/20/24 14:45 01/20/24 15:30 01/20/24 15:32 Temperature Pulse Rate 90 97 Pulse Rate [Pulse Oximeter] Respiratory Rate Blood Pressure 130/77 Blood Pressure [Ri ght Upper Arm] Pulse Oximetry 96 96 Oxygen Delivery Me thod Nasal Cannula Nasal Cannula Nasal Cannula Oxygen Flow Rate 2 2 2 01/20/24 15:45 01/20/24 16:02 01/20/24 16:15 Temperature Pulse Rate 87 86 Pulse Rate [Pulse Oximeter] Respiratory Rate 26 H 26 H Blood Pressure 135/67 Blood Pressure [Ri ght Upper Arm] Pulse Oximetry 97 96 Oxygen Delivery Me thod Nasal Cannula Nasal Cannula Oxygen Flow Rate 2 2 01/20/24 17:15 01/20/24 17:20 01/20/24 17:31 Temperature Pulse Rate 97 100 110 H Pulse Rate [Pulse Oximeter] Respiratory Rate 41 H Blood Pressure 123/65 Blood Pressure [Ri ght Upper Arm] Pulse Oximetry 94 93 83 L Oxygen Delivery Me thod Nasal Cannula Nasal Cannula Nasal Cannula Oxygen Flow Rate 2 2 2 01/20/24 17:32 01/20/24 17:45 01/20/24 17:49 Temperature 101.2 F H Pulse Rate 107 H 91 Pulse Rate [Pulse Oximeter] Respiratory Rate 35 H 30 H Blood Pressure 138/74 Blood Pressure [Ri ght Upper Arm] Pulse Oximetry 89 91 Oxygen Delivery Me thod Nasal Cannula Nasal Cannula Oxygen Flow Rate 2 3 01/20/24 18:00 01/20/24 18:02 01/20/24 18:03 Temperature Pulse Rate 93 89 94 Pulse Rate [Pulse Oximeter] Respiratory Rate 31 H 30 H 30 H Blood Pressure 134/64 Blood Pressure [Ri ght Upper Arm] Pulse Oximetry 93 95 94 Oxygen Delivery Me thod Nasal Cannula Nasal Cannula Nasal Cannula Oxygen Flow Rate 3 3 3 01/20/24 18:15 01/20/24 18:30 01/20/24 18:32 Temperature Pulse Rate 97 97 92 Pulse Rate [Pulse Oximeter] Respiratory Rate 34 H 27 H 31 H Blood Pressure 120/71 Blood Pressure [Ri ght Upper Arm] Pulse Oximetry 92 91 92 Oxygen Delivery Me thod Nasal Cannula Nasal Cannula Nasal Cannula Oxygen Flow Rate 3 3 3 <Edmundo Chávez MD - Last Filed: 01/20/24 16:36> Vital Signs, click to edit/add: Vital Signs - 24 hr 01/20/24 13:47 01/20/24 13:55 01/20/24 14:00 Temperature 100.5 F H Pulse Rate Pulse Rate [Pulse Oximeter] 99 Respiratory Rate 24 Blood Pressure Blood Pressure [Ri ght Upper Arm] 121/66 Pulse Oximetry 87 L 82 L 94 Oxygen Delivery Me thod Room Air Room Air Nasal Cannula Oxygen Flow Rate 2 01/20/24 14:07 01/20/24 14:15 01/20/24 14:19 Temperature Pulse Rate 95 102 H Pulse Rate [Pulse Oximeter] Respiratory Rate Blood Pressure Blood Pressure [Ri ght Upper Arm] Pulse Oximetry 98 96 94 Oxygen Delivery Me thod Nasal Cannula Nasal Cannula Oxygen Flow Rate 2 2 01/20/24 14:19 01/20/24 14:30 01/20/24 14:32 Temperature Pulse Rate 93 95 Pulse Rate [Pulse Oximeter] Respiratory Rate 26 H Blood Pressure 123/75 Blood Pressure [Ri ght Upper Arm] Pulse Oximetry 95 95 95 Oxygen Delivery Me thod Nasal Cannula Nasal Cannula Nasal Cannula Oxygen Flow Rate 2 2 2 01/20/24 14:45 01/20/24 15:30 01/20/24 15:32 Temperature Pulse Rate 90 97 Pulse Rate [Pulse Oximeter] Respiratory Rate Blood Pressure 130/77 Blood Pressure [Ri ght Upper Arm] Pulse Oximetry 96 96 Oxygen Delivery Me thod Nasal Cannula Nasal Cannula Nasal Cannula Oxygen Flow Rate 2 2 2 01/20/24 15:45 01/20/24 16:02 01/20/24 16:15 Temperature Pulse Rate 87 86 Pulse Rate [Pulse Oximeter] Respiratory Rate 26 H 26 H Blood Pressure 135/67 Blood Pressure [Ri ght Upper Arm] Pulse Oximetry 97 96 Oxygen Delivery Me thod Nasal Cannula Nasal Cannula Oxygen Flow Rate 2 2 01/20/24 17:15 01/20/24 17:20 01/20/24 17:31 Temperature Pulse Rate 97 100 110 H Pulse Rate [Pulse Oximeter] Respiratory Rate 41 H Blood Pressure 123/65 Blood Pressure [Ri ght Upper Arm] Pulse Oximetry 94 93 83 L Oxygen Delivery Me thod Nasal Cannula Nasal Cannula Nasal Cannula Oxygen Flow Rate 2 2 2 01/20/24 17:32 01/20/24 17:45 01/20/24 17:49 Temperature 101.2 F H Pulse Rate 107 H 91 Pulse Rate [Pulse Oximeter] Respiratory Rate 35 H 30 H Blood Pressure 138/74 Blood Pressure [Ri ght Upper Arm] Pulse Oximetry 89 91 Oxygen Delivery Me thod Nasal Cannula Nasal Cannula Oxygen Flow Rate 2 3 01/20/24 18:00 01/20/24 18:02 01/20/24 18:03 Temperature Pulse Rate 93 89 94 Pulse Rate [Pulse Oximeter] Respiratory Rate 31 H 30 H 30 H Blood Pressure 134/64 Blood Pressure [Ri ght Upper Arm] Pulse Oximetry 93 95 94 Oxygen Delivery Me thod Nasal Cannula Nasal Cannula Nasal Cannula Oxygen Flow Rate 3 3 3 01/20/24 18:15 01/20/24 18:30 01/20/24 18:32 Temperature Pulse Rate 97 97 92 Pulse Rate [Pulse Oximeter] Respiratory Rate 34 H 27 H 31 H Blood Pressure 120/71 Blood Pressure [Ri ght Upper Arm] Pulse Oximetry 92 91 92 Oxygen Delivery Me thod Nasal Cannula Nasal Cannula Nasal Cannula Oxygen Flow Rate 3 3 3 <Albaro Prater MD - Last Filed: 01/20/24 18:44> Course Course ED Course: I spoke to male, we will attempt to get him transferred there to him a collagen, I suspect that this is a bone marrow crisis somehow related to his recent treatments for his follicular B-cell lymphoma. His fecal testing is still pending but grossly there is no blood or dark stools on my finger, I think this is the possibility of production although I could not rule out hemolytic anemia as a cause. But think that is lot less likely. His low-grade fever makes me feel that this may be related to a crisis, although I cannot rule out infection cultures are pending, and I have given him broad-spectrum imipenem at this time. Pulmonary embolism is also a possibility, and further testing can be undertaken. Either at our institution or at the transfer place. His kidneys are reasonable at this point to support a contrast load. <Edmundo Chávez MD - Last Filed: 01/20/24 16:36> Reevaluation(s) Time of Reevaluation #1: 16:32 <Edmundo Chávez MD - Last Filed: 01/20/24 16:36> Reevaluation #1: Discussed with and signed over, discussed with the family and discussed with the transfer nurse Jessika at [facility]. <Edmundo Chávez MD - Last Filed: 01/20/24 16:36> Vital Signs Vital signs: Initial Vital Signs Temperature 100.5 F H 01/20/24 13:47 Temperature Source Temporal Artery Scan 01/20/24 13:47 Pulse Rate 99 01/20/24 13:47 Respiratory Rate 01/20/24 13:47 Blood Pressure 121/66 01/20/24 13:47 Blood Pressure Mean 84 01/20/24 13:47 Blood Pressure Position Sitting 01/20/24 13:47 Pulse Oximetry 87 L 01/20/24 13:47 Oxygen Delivery Method Room Air 01/20/24 13:47 Vital Signs Temperature 100.5 F H 01/20/24 13:47 Pulse Rate 99 01/20/24 13:47 Respiratory Rate 01/20/24 13:47 Blood Pressure 121/66 01/20/24 13:47 Pulse Oximetry 87 L 01/20/24 13:47 Oxygen Delivery Method Room Air 01/20/24 13:47 Temperature 101.2 F H 01/20/24 17:49 Pulse Rate 92 01/20/24 18:32 Respiratory Rate 31 H 01/20/24 18:32 Blood Pressure 120/71 01/20/24 18:32 Pulse Oximetry 92 01/20/24 18:32 Oxygen Delivery Method Nasal Cannula 01/20/24 18:32 Oxygen Flow Rate 3 01/20/24 18:32 <Edmundo Chávez MD - Last Filed: 01/20/24 16:36> Initial Vital Signs Temperature 100.5 F H 01/20/24 13:47 Temperature Source Temporal Artery Scan 01/20/24 13:47 Pulse Rate 99 01/20/24 13:47 Respiratory Rate 24 01/20/24 13:47 Blood Pressure 121/66 01/20/24 13:47 Blood Pressure Mean 84 01/20/24 13:47 Blood Pressure Position Sitting 01/20/24 13:47 Pulse Oximetry 87 L 01/20/24 13:47 Oxygen Delivery Method Room Air 01/20/24 13:47 Vital Signs Temperature 100.5 F H 01/20/24 13:47 Pulse Rate 99 01/20/24 13:47 Respiratory Rate 01/20/24 13:47 Blood Pressure 121/66 01/20/24 13:47 Pulse Oximetry 87 L 01/20/24 13:47 Oxygen Delivery Method Room Air 01/20/24 13:47 Temperature 101.2 F H 01/20/24 17:49 Pulse Rate 92 01/20/24 18:32 Respiratory Rate 31 H 01/20/24 18:32 Blood Pressure 120/71 01/20/24 18:32 Pulse Oximetry 92 01/20/24 18:32 Oxygen Delivery Method Nasal Cannula 01/20/24 18:32 Oxygen Flow Rate 3 01/20/24 18:32 <Albaro Prater MD - Last Filed: 01/20/24 18:44> Medications Administered Medications: Discontinued Medications Generic Name Dose Route Start Last Admin Trade Name Freq PRN Reason Stop Dose Admin Acetaminophen 1,000 mg 01/20/24 17:49 01/20/24 17:55 Acetaminophen 500 Mg Tablet PO 01/20/24 17:50 1,000 mg ONCE ONE Administration Imipenem/Cilastatin Sodium 500 100 mls @ 200 mls/hr 01/20/24 15:47 01/20/24 16:44 mg/ Sodium Chloride IVPB 01/20/24 15:48 Infused ONCE ONE Infusion Sodium Chloride 500 mls @ 500 mls/hr 01/20/24 16:02 01/20/24 16:15 0.9 % Sodium Chloride 500 Ml IV 01/20/24 17:01 500 mls/hr .Q1H ONE Administration <Edmundo Chávez MD - Last Filed: 01/20/24 16:36> Discontinued Medications Generic Name Dose Route Start Last Admin Trade Name Freq PRN Reason Stop Dose Admin Acetaminophen 1,000 mg 01/20/24 17:49 01/20/24 17:55 Acetaminophen 500 Mg Tablet PO 01/20/24 17:50 1,000 mg ONCE ONE Administration Imipenem/Cilastatin Sodium 500 100 mls @ 200 mls/hr 01/20/24 15:47 01/20/24 16:44 mg/ Sodium Chloride IVPB 01/20/24 15:48 Infused ONCE ONE Infusion Sodium Chloride 500 mls @ 500 mls/hr 01/20/24 16:02 01/20/24 16:15 0.9 % Sodium Chloride 500 Ml IV 01/20/24 17:01 500 mls/hr .Q1H ONE Administration <Albaro Prater MD - Last Filed: 01/20/24 18:44> MDM - SOB/Dyspnea MDM Narrative Medical decision making narrative: Life-threatening differential diagnosis considered include stroke, coronary artery disease, pneumonia, and heart failure. Other differential diagnosis include but are not limited to electrolyte imbalances, anemia, medication reactions, and urinary tract infection Differential diagnosis include a viral upper respiratory illness, histoplasmosis, tuberculosis, pneumonia, COPD exacerbation, emphysema, strep throat illness, bronchitis, asthma, reactive airway disease, chronic cough, medication side effects, allergic rhinitis with postnasal drip, foreign body aspiration, aspiration pneumonia, bronchiolitis, and gastroesophageal reflux disease as well as multiple other considerations. Life-threatening differential diagnosis is include meningitis, encephalitis, pneumonia, intra-abdominal infection, bacteremia, other differential diagnosis include but are not limited to viral upper respiratory tract infection, strep, urinary tract infection, skin infection, osteomyelitis, influenza, fungal infections, diskitis, epidural abscess, or fever of unknown origin. <Edmundo Chávez MD - Last Filed: 01/20/24 16:36> Life-threatening differential diagnosis considered include stroke, c oronary artery disease, pneumonia, and heart failure. Other differential diagnosis include but are not limited to electrolyte imbalances, anemia, medication reactions, and urinary tract infection Differential diagnosis include a viral upper respiratory illness, histoplasmosis, tuberculosis, pneumonia, COPD exacerbation, emphysema, strep throat illness, bronchitis, asthma, reactive airway disease, chronic cough, medication side effects, allergic rhinitis with postnasal drip, foreign body aspiration, aspiration pneumonia, bronchiolitis, and gastroesophageal reflux disease as well as multiple other considerations. Life-threatening differential diagnosis is include meningitis, encephalitis, pneumonia, intra-abdominal infection, bacteremia, other differential diagnosis include but are not limited to viral upper respiratory tract infection, strep, urinary tract infection, skin infection, osteomyelitis, influenza, fungal infections, diskitis, epidural abscess, or fever of unknown origin. I did have discussion with 2 physicians at [facility]. Dr. Julien was a hospitalist and an oncologist named Dr. Shi. They were agreeable to have the patient transfer for further management and treatment. Dr. Yoseph Prater <Albaro Prater MD - Last Filed: 01/20/24 18:44> Differential Diagnosis Differential diagnosis: Likely acute exacerbation of chronic obstructive airways disease, congestive heart failure, community acquired pneumonia, asthma with exacerbation and pulmonary embolism <Edmundo Chávez MD - Last Filed: 01/20/24 16:36> Medical Records Attestation: I reviewed the patient's medical records. <Edmundo Chávez MD - Last Filed: 01/20/24 16:36> Lab Data Attestation: I reviewed the patient's lab results. <Edmundo Chávez MD - Last Filed: 01/20/24 16:36> Labs: Lab Results 01/20/24 01/20/24 01/20/24 Range/Units 14:03 14:28 14:45 WBC 6.61 (4.50-11.00) K/uL RBC 1.72 L (4.30-5.90) m/uL Hgb 5.4 L* (13.5-17.5) gm/dL Hct 16.3 L (37.0-53.0) % MCV 95 (80-100) fL MCH 31 (26-34) pg MCHC 33 (32-36) gm/dL RDW Coeff of Nicki 17.7 H (11.5-15.5) % Plt Count 9 L* (140-440) K/uL Neut % (Auto) 12.9 L (42.0-72.0) % Lymph % (Auto) 17.9 L (20-44) % Prentiss % (Auto) 64.9 H (0.0-11.0) % Eos % (Auto) 0.2 (0.0-7.0) % Baso % (Auto) 0.0 (0.0-3.0) % Neut # (Auto) 0.90 L (1.7-7.0) K/uL Lymph # (Auto) 1.20 (0.90-2.90) K/uL Prentiss # (Auto) 4.30 H (0.00-0.90) K/UL Eos # (Auto) 0.01 (0.00-0.50) K/uL Baso # (Auto) 0.00 (0.00-0.30) K/uL Abs Immat Gran (auto) 0.27 (0.00-0.30) K/uL Imm/Tot Granulo (auto) 4.1 % Diff Slide Review Acceptable Review (Acceptable) INR 1.21 H (0.91-1.10) APTT 34 H (23-33) Seconds D-Dimer Quant (PE/DVT) 10.48 H (0.00-0.50) ug/ml VBG pH 7.482 H (7.32-7.43) VBG pCO2 30 L (40-50) mmHG VBG pO2 < 30.1 (25-47) mmHG VBG HCO3 23 (21-28) mmol/L Sodium 138 (135-149) mmol/L Potassium 4.0 (3.6-5.1) mmol/L Chloride 108 (96-114) mmol/L Carbon Dioxide 23 (20-32) mmol/L Anion Gap 7 (7-15) mEq/L BUN 25 (7-30) mg/dL Creatinine 1.4 (0.5-1.5) mg/dL Estimated GFR 51 ml/min Glucose 141 H (60-115) mg/dL Lactate 1.7 (0.5-1.9) mmol/L Calcium 8.4 (8.4-10.6) mg/dL NT-Pro-B Natriuret Pep 2420 pg/mL Procalcitonin 1.19 H (<0.50) ng/mL Urine Color (Yellow) Urine Appearance (Clear) Urine pH (5.0-8.5) Ur Specific [place] (1.000-1.030) Urine Protein (Negative) Urine Glucose (UA) (Negative) Urine Ketones (Negative) Urine Blood (Negative) Urine Nitrite (Negative) Urine Bilirubin (Negative) Urine Urobilinogen (0.2-1.0) Ur Leukocyte Esterase (Negative) Urine RBC (0-2) Urine WBC (0-5) Ur Squamous Epith Cells (None-Few) Urine Bacteria (None) Coarse Granular Casts (None) Stool Occult Blood (Negative) SARS-CoV-2 (PCR) Negative SARS-CoV-2 (Negative) Influenza Type A (PCR) Negative PCR FLU A (Negative) Influenza Type B (PCR) Negative PCR FLU B (Negative) RSV (PCR) Negative PCR RSV (Negative) POC Troponin I 0.04 (0.01-0.04) ng/ml Blood Type Antibody Screen 01/20/24 01/20/24 01/20/24 Range/Units 15:43 16:00 16:15 WBC (4.50-11.00) K/uL RBC (4.30-5.90) m/uL Hgb (13.5-17.5) gm/dL Hct (37.0-53.0) % MCV (80-100) fL MCH (26-34) pg MCHC (32-36) gm/dL RDW Coeff of Nicki (11.5-15.5) % Plt Count (140-440) K/uL Neut % (Auto) (42.0-72.0) % Lymph % (Auto) (20-44) % [place] % (Auto) (0.0-11.0) % Eos % (Auto) (0.0-7.0) % Baso % (Auto) (0.0-3.0) % Neut # (Auto) (1.7-7.0) K/uL Lymph # (Auto) (0.90-2.90) K/uL [place] # (Auto) (0.00-0.90) K/UL Eos # (Auto) (0.00-0.50) K/uL Baso # (Auto) (0.00-0.30) K/uL Abs Immat Gran (auto) (0.00-0.30) K/uL Imm/Tot Granulo (auto) % Diff Slide Review (Acceptable) INR (0.91-1.10) APTT (23-33) Seconds D-Dimer Quant (PE/DVT) (0.00-0.50) ug/ml VBG pH (7.32-7.43) VBG pCO2 (40-50) mmHG VBG pO2 (25-47) mmHG VBG HCO3 (21-28) mmol/L Sodium (135-149) mmol/L Potassium (3.6-5.1) mmol/L Chloride (96-114) mmol/L Carbon Dioxide (20-32) mmol/L Anion Gap (7-15) mEq/L BUN (7-30) mg/dL Creatinine (0.5-1.5) mg/dL Estimated GFR ml/min Glucose (60-115) mg/dL Lactate (0.5-1.9) mmol/L Calcium (8.4-10.6) mg/dL NT-Pro-B Natriuret Pep pg/mL Procalcitonin (<0.50) ng/mL Urine Color Marianne A (Yellow) Urine Appearance Slightly Cloudy A (Clear) Urine pH 6.0 (5.0-8.5) Ur Specific [place] 1.015 (1.000-1.030) Urine Protein 2+ A (Negative) Urine Glucose (UA) Negative (Negative) Urine Ketones Negative (Negative) Urine Blood Trace-lysed A (Negative) Urine Nitrite Negative (Negative) Urine Bilirubin Negative (Negative) Urine Urobilinogen 0.2 (0.2-1.0) Ur Leukocyte Esterase Negative (Negative) Urine RBC 2-5 A (0-2) Urine WBC 0-2 (0-5) Ur Squamous Epith Cells Few (None-Few) Urine Bacteria None (None) Coarse Granular Casts Moderate A (None) Stool Occult Blood Positive (Negative) SARS-CoV-2 (PCR) (Negative) Influenza Type A (PCR) (Negative) Influenza Type B (PCR) (Negative) RSV (PCR) (Negative) POC Troponin I (0.01-0.04) ng/ml Blood Type A Positive Antibody Screen NEGATIVE 01/20/24 01/20/24 Range/Units 17:42 17:55 WBC 5.00 (4.50-11.00) K/uL RBC 1.73 L (4.30-5.90) m/uL Hgb 5.4 L* (13.5-17.5) gm/dL Hct 16.4 L (37.0-53.0) % MCV 95 (80-100) fL MCH 31 (26-34) pg MCHC 33 (32-36) gm/dL RDW Coeff of Nicki 17.6 H (11.5-15.5) % Plt Count 8 L* (140-440) K/uL Neut % (Auto) 13.4 L (42.0-72.0) % Lymph % (Auto) 26.8 (20-44) % [place] % (Auto) 55.6 H (0.0-11.0) % Eos % (Auto) 0.0 (0.0-7.0) % Baso % (Auto) 0.0 (0.0-3.0) % Neut # (Auto) 0.70 L (1.7-7.0) K/uL Lymph # (Auto) 1.34 (0.90-2.90) K/uL [place] # (Auto) 2.80 H (0.00-0.90) K/UL Eos # (Auto) 0.00 (0.00-0.50) K/uL Baso # (Auto) 0.00 (0.00-0.30) K/uL Abs Immat Gran (auto) 0.21 (0.00-0.30) K/uL Imm/Tot Granulo (auto) 4.2 % Diff Slide Review (Acceptable) INR (0.91-1.10) APTT (23-33) Seconds D-Dimer Quant (PE/DVT) (0.00-0.50) ug/ml VBG pH (7.32-7.43) VBG pCO2 (40-50) mmHG VBG pO2 (25-47) mmHG VBG HCO3 (21-28) mmol/L Sodium (135-149) mmol/L Potassium (3.6-5.1) mmol/L Chloride (96-114) mmol/L Carbon Dioxide (20-32) mmol/L Anion Gap (7-15) mEq/L BUN (7-30) mg/dL Creatinine (0.5-1.5) mg/dL Estimated GFR ml/min Glucose (60-115) mg/dL Lactate (0.5-1.9) mmol/L Calcium (8.4-10.6) mg/dL NT-Pro-B Natriuret Pep pg/mL Procalcitonin (<0.50) ng/mL Urine Color (Yellow) Urine Appearance (Clear) Urine pH (5.0-8.5) Ur Specific [place] (1.000-1.030) Urine Protein (Negative) Urine Glucose (UA) (Negative) Urine Ketones (Negative) Urine Blood (Negative) Urine Nitrite (Negative) Urine Bilirubin (Negative) Urine Urobilinogen (0.2-1.0) Ur Leukocyte Esterase (Negative) Urine RBC (0-2) Urine WBC (0-5) Ur Squamous Epith Cells (None-Few) Urine Bacteria (None) Coarse Granular Casts (None) Stool Occult Blood (Negative) SARS-CoV-2 (PCR) (Negative) Influenza Type A (PCR) (Negative) Influenza Type B (PCR) (Negative) RSV (PCR) (Negative) POC Troponin I 0.04 (0.01-0.04) ng/ml Blood Type Antibody Screen <Edmundo Chávez MD - Last Filed: 01/20/24 16:36> Lab Results 01/20/24 01/20/24 01/20/24 Range/Units 14:03 14:28 14:45 WBC 6.61 (4.50-11.00) K/uL RBC 1.72 L (4.30-5.90) m/uL Hgb 5.4 L* (13.5-17.5) gm/dL Hct 16.3 L (37.0-53.0) % MCV 95 (80-100) fL MCH 31 (26-34) pg MCHC 33 (32-36) gm/dL RDW Coeff of Nicki 17.7 H (11.5-15.5) % Plt Count 9 L* (140-440) K/uL Neut % (Auto) 12.9 L (42.0-72.0) % Lymph % (Auto) 17.9 L (20-44) % [place] % (Auto) 64.9 H (0.0-11.0) % Eos % (Auto) 0.2 (0.0-7.0) % Baso % (Auto) 0.0 (0.0-3.0) % Neut # (Auto) 0.90 L (1.7-7.0) K/uL Lymph # (Auto) 1.20 (0.90-2.90) K/uL [place] # (Auto) 4.30 H (0.00-0.90) K/UL Eos # (Auto) 0.01 (0.00-0.50) K/uL Baso # (Auto) 0.00 (0.00-0.30) K/uL Abs Immat Gran (auto) 0.27 (0.00-0.30) K/uL Imm/Tot Granulo (auto) 4.1 % Diff Slide Review Acceptable Review (Acceptable) INR 1.21 H (0.91-1.10) APTT 34 H (23-33) Seconds D-Dimer Quant (PE/DVT) 10.48 H (0.00-0.50) ug/ml VBG pH 7.482 H (7.32-7.43) VBG pCO2 30 L (40-50) mmHG VBG pO2 < 30.1 (25-47) mmHG VBG HCO3 23 (21-28) mmol/L Sodium 138 (135-149) mmol/L Potassium 4.0 (3.6-5.1) mmol/L Chloride 108 (96-114) mmol/L Carbon Dioxide 23 (20-32) mmol/L Anion Gap 7 (7-15) mEq/L BUN 25 (7-30) mg/dL Creatinine 1.4 (0.5-1.5) mg/dL Estimated GFR 51 ml/min Glucose 141 H (60-115) mg/dL Lactate 1.7 (0.5-1.9) mmol/L Calcium 8.4 (8.4-10.6) mg/dL NT-Pro-B Natriuret Pep 2420 pg/mL Procalcitonin 1.19 H (<0.50) ng/mL Urine Color (Yellow) Urine Appearance (Clear) Urine pH (5.0-8.5) Ur Specific [place] (1.000-1.030) Urine Protein (Negative) Urine Glucose (UA) (Negative) Urine Ketones (Negative) Urine Blood (Negative) Urine Nitrite (Negative) Urine Bilirubin (Negative) Urine Urobilinogen (0.2-1.0) Ur Leukocyte Esterase (Negative) Urine RBC (0-2) Urine WBC (0-5) Ur Squamous Epith Cells (None-Few) Urine Bacteria (None) Coarse Granular Casts (None) Stool Occult Blood (Negative) SARS-CoV-2 (PCR) Negative SARS-CoV-2 (Negative) Influenza Type A (PCR) Negative PCR FLU A (Negative) Influenza Type B (PCR) Negative PCR FLU B (Negative) RSV (PCR) Negative PCR RSV (Negative) POC Troponin I 0.04 (0.01-0.04) ng/ml Blood Type Antibody Screen 01/20/24 01/20/24 01/20/24 Range/Units 15:43 16:00 16:15 WBC (4.50-11.00) K/uL RBC (4.30-5.90) m/uL Hgb (13.5-17.5) gm/dL Hct (37.0-53.0) % MCV (80-100) fL MCH (26-34) pg MCHC (32-36) gm/dL RDW Coeff of Nicki (11.5-15.5) % Plt Count (140-440) K/uL Neut % (Auto) (42.0-72.0) % Lymph % (Auto) (20-44) % [place] % (Auto) (0.0-11.0) % Eos % (Auto) (0.0-7.0) % Baso % (Auto) (0.0-3.0) % Neut # (Auto) (1.7-7.0) K/uL Lymph # (Auto) (0.90-2.90) K/uL [place] # (Auto) (0.00-0.90) K/UL Eos # (Auto) (0.00-0.50) K/uL Baso # (Auto) (0.00-0.30) K/uL Abs Immat Gran (auto) (0.00-0.30) K/uL Imm/Tot Granulo (auto) % Diff Slide Review (Acceptable) INR (0.91-1.10) APTT (23-33) Seconds D-Dimer Quant (PE/DVT) (0.00-0.50) ug/ml VBG pH (7.32-7.43) VBG pCO2 (40-50) mmHG VBG pO2 (25-47) mmHG VBG HCO3 (21-28) mmol/L Sodium (135-149) mmol/L Potassium (3.6-5.1) mmol/L Chloride (96-114) mmol/L Carbon Dioxide (20-32) mmol/L Anion Gap (7-15) mEq/L BUN (7-30) mg/dL Creatinine (0.5-1.5) mg/dL Estimated GFR ml/min Glucose (60-115) mg/dL Lactate (0.5-1.9) mmol/L Calcium (8.4-10.6) mg/dL NT-Pro-B Natriuret Pep pg/mL Procalcitonin (<0.50) ng/mL Urine Color Marianne A (Yellow) Urine Appearance Slightly Cloudy A (Clear) Urine pH 6.0 (5.0-8.5) Ur Specific [place] 1.015 (1.000-1.030) Urine Protein 2+ A (Negative) Urine Glucose (UA) Negative (Negative) Urine Ketones Negative (Negative) Urine Blood Trace-lysed A (Negative) Urine Nitrite Negative (Negative) Urine Bilirubin Negative (Negative) Urine Urobilinogen 0.2 (0.2-1.0) Ur Leukocyte Esterase Negative (Negative) Urine RBC 2-5 A (0-2) Urine WBC 0-2 (0-5) Ur Squamous Epith Cells Few (None-Few) Urine Bacteria None (None) Coarse Granular Casts Moderate A (None) Stool Occult Blood Positive (Negative) SARS-CoV-2 (PCR) (Negative) Influenza Type A (PCR) (Negative) Influenza Type B (PCR) (Negative) RSV (PCR) (Negative) POC Troponin I (0.01-0.04) ng/ml Blood Type A Positive Antibody Screen NEGATIVE 01/20/24 01/20/24 Range/Units 17:42 17:55 WBC 5.00 (4.50-11.00) K/uL RBC 1.73 L (4.30-5.90) m/uL Hgb 5.4 L* (13.5-17.5) gm/dL Hct 16.4 L (37.0-53.0) % MCV 95 (80-100) fL MCH 31 (26-34) pg MCHC 33 (32-36) gm/dL RDW Coeff of Nicki 17.6 H (11.5-15.5) % Plt Count 8 L* (140-440) K/uL Neut % (Auto) 13.4 L (42.0-72.0) % Lymph % (Auto) 26.8 (20-44) % [place] % (Auto) 55.6 H (0.0-11.0) % Eos % (Auto) 0.0 (0.0-7.0) % Baso % (Auto) 0.0 (0.0-3.0) % Neut # (Auto) 0.70 L (1.7-7.0) K/uL Lymph # (Auto) 1.34 (0.90-2.90) K/uL [place] # (Auto) 2.80 H (0.00-0.90) K/UL Eos # (Auto) 0.00 (0.00-0.50) K/uL Baso # (Auto) 0.00 (0.00-0.30) K/uL Abs Immat Gran (auto) 0.21 (0.00-0.30) K/uL Imm/Tot Granulo (auto) 4.2 % Diff Slide Review (Acceptable) INR (0.91-1.10) APTT (23-33) Seconds D-Dimer Quant (PE/DVT) (0.00-0.50) ug/ml VBG pH (7.32-7.43) VBG pCO2 (40-50) mmHG VBG pO2 (25-47) mmHG VBG HCO3 (21-28) mmol/L Sodium (135-149) mmol/L Potassium (3.6-5.1) mmol/L Chloride (96-114) mmol/L Carbon Dioxide (20-32) mmol/L Anion Gap (7-15) mEq/L BUN (7-30) mg/dL Creatinine (0.5-1.5) mg/dL Estimated GFR ml/min Glucose (60-115) mg/dL Lactate (0.5-1.9) mmol/L Calcium (8.4-10.6) mg/dL NT-Pro-B Natriuret Pep pg/mL Procalcitonin (<0.50) ng/mL Urine Color (Yellow) Urine Appearance (Clear) Urine pH (5.0-8.5) Ur Specific [place] (1.000-1.030) Urine Protein (Negative) Urine Glucose (UA) (Negative) Urine Ketones (Negative) Urine Blood (Negative) Urine Nitrite (Negative) Urine Bilirubin (Negative) Urine Urobilinogen (0.2-1.0) Ur Leukocyte Esterase (Negative) Urine RBC (0-2) Urine WBC (0-5) Ur Squamous Epith Cells (None-Few) Urine Bacteria (None) Coarse Granular Casts (None) Stool Occult Blood (Negative) SARS-CoV-2 (PCR) (Negative) Influenza Type A (PCR) (Negative) Influenza Type B (PCR) (Negative) RSV (PCR) (Negative) POC Troponin I 0.04 (0.01-0.04) ng/ml Blood Type Antibody Screen <Albaro Prater MD - Last Filed: 01/20/24 18:44> ABG Data Attestation: I personally reviewed and interpreted this ABG as follows: <Edmundo Chávez MD - Last Filed: 01/20/24 16:36> Interpretation: VBG looks good. <Edmundo Chávez MD - Last Filed: 01/20/24 16:36> Imaging Data Chest x-ray: Attestation: I have reviewed the pertinent imaging results. <Edmundo Chávez MD - Last Filed: 01/20/24 16:36> My impression: Chest x-ray by my review shows no evidence of acute findings. Radiological over-read pending <Edmundo Chávez MD - Last Filed: 01/20/24 16:36> Radiologist's impression: Patient: DANA MARINO Facility:?[facility] Patient ID:?[id number] Site Patient ID:?[id number]. Site :?1945 Study:?XRay-Chest 2V-01/20/2024 3:31:41 PM Ordering Physician:?SEPER Final Report: INDICATION: Cough, fever and weakness. History of lymphoma. COMPARISON: None available. TECHNIQUE: 2 views. FINDINGS: Medical Devices: Right Port-A-Cath with the catheter tip at the cavoatrial junction. Lung Volumes: Adequate inspiration. No significant atelectasis. Lungs: Clear lungs. Pleura and Pleural spaces: No significant pleural effusion. No pneumothorax. Mediastinum: Normal cardiomediastinal silhouette. Bony Thorax and Soft Tissues: No significant incidental findings. Median sternotomy. IMPRESSION: No imaging findings pertinent to the indication for the exam or significant unrelated findings. Incidental findings described in the body of the report. Dictated by Lon Adams MD @ 01/20/2024 3:45:51 PM (Electronic Signature) Patient: DANA MARINO Facility:?[facility] Patient ID:?[id number] Site Patient ID:?[id number]. Site :?1945 Study:?XRay-Abdomen 2V-01/20/2024 3:31:05 PM Ordering Physician:MIKE Final Report: INDICATION: Cough, fever, weakness TECHNIQUE: Upright and supine views. COMPARISON: None available FINDINGS: There is a nonspecific, nonobstructive bowel gas pattern. There is a moderate amount of intracolonic fecal distention. There is no intra-abdominal free air or pathologic calcification. There is no acute osseous abnormality. IMPRESSION: Nonspecific, nonobstructive bowel gas pattern. Moderate stool. Dictated by Mark Hdz MD @ 01/20/2024 3:37:21 PM (Electronic Signature Patient: DANA MARINO Facility:?[facility] Patient ID:?[id number] Site Patient ID:?[id number]. Site :?1945 Study:?CT-Head w/o-01/20/2024 2:56:54 PM Ordering Physician:Blaine Chávez Final Report: INDICATION: Fall, head injury TECHNIQUE: CT head without contrast. COMPARISON: None. FINDINGS: CSF spaces: Within normal limits for age. Brain parenchyma: The tovar-white differentiation is normal. No sign of mass, hemorrhage, or midline shift. Mild cerebral atrophy. Skull base and calvarium: The visualized paranasal sinuses and mastoid air cells demonstrate no acute or significant findings. The visualized orbits are grossly unremarkable. No skull fractures. Atherosclerosis IMPRESSION: 1. No calvarial fracture or intracranial bleed. 2. Mild cerebral atrophy. Please note that all CT scans at this facility use dose modulation, iterative reconstruction, and/or weight-based dosing when appropriate to reduce radiation dose to as low as reasonably achievable. Dictated by Roland Magallanes MD @ 01/20/2024 3:06:11 PM (Electronic Signature)) <Edmundo Chávez MD - Last Filed: 01/20/24 16:36> ECG Data Prior ECG tracings: not available for review <Edmundo Chávez MD - Last Filed: 01/20/24 16:36> Interpretation: EKG shows normal sinus rhythm with ventricular rate of 93, mild ST wave flattening is noted across the precordial leads and inferior leads, QRS QT and NV intervals are all normal <Edmundo Chávez MD - Last Filed: 01/20/24 16:36> Discharge Plan Discharge Clinical Impression: Fever, Anemia, Thrombocytopenia, Hypoxia <Edmundo Chávez MD - Last Filed: 01/20/24 16:36> Patient Disposition: Xfer Other <Edmundo Chávez MD - Last Filed: 01/20/24 16:36> Condition: Unchanged <Edmundo Chávez MD - Last Filed: 01/20/24 16:36> Prescriptions: No Action amlodipine 2.5 mg tablet 2.5 mg PO DAILY acetaminophen 500 mg capsule 500 mg PO Q4-6H PRN ascorbic acid (vitamin C) 500 mg capsule 500 mg PO DAILY atorvastatin 20 mg tablet 20 mg PO .am bisacodyl 10 mg suppository 10 mg NV DAILY PRN cetirizine 10 mg tablet 10 mg PO DAILY PRN cholecalciferol (vitamin D3) 50 mcg (2,000 unit) capsule 50 mcg PO DAILY multivitamin Tablet 1 tab PO DAILY omeprazole 20 mg capsule,delayed release(DR/EC) 20 mg PO DAILY polyethylene glycol 3350 [Miralax] 17 gram/dose powder 17 g PO DAILY naproxen .ROUTE <Edmundo Chávez MD - Last Filed: 01/20/24 16:36> Stand Alone Forms: My[facility] Info Instructions <Edmundo Chávez MD - Last Filed: 01/20/24 16:36>
--- NOTE | 2024-01-20 14:15 | XR_ITS ---
Patient: DANA MARINO Facility:?[facility] Patient ID:?[id number] Site Patient ID:?[id number]. Site :?1945 Study:?XRay-Abdomen 2V-01/20/2024 3:31:05 PM Ordering Physician:MIKE Final Report: INDICATION: Cough, fever, weakness TECHNIQUE: Upright and supine views. COMPARISON: None available FINDINGS: There is a nonspecific, nonobstructive bowel gas pattern. There is a moderate amount of intracolonic fecal distention. There is no intra-abdominal free air or pathologic calcification. There is no acute osseous abnormality. IMPRESSION: Nonspecific, nonobstructive bowel gas pattern. Moderate stool. Dictated by Mark Hdz MD @ 01/20/2024 3:37:21 PM Signed by:?Mark Hdz MD @01/20/2024 3:37:21 PM (Electronic Signature)
[2024-01-20 14:31] LABS: Lactate* 1.7 mmol/L (0.5-1.9)
--- NOTE | 2024-01-20 14:40 | CT_ITS ---
Patient: DANA MARINO Facility:?[facility] Patient ID:?[id number] Site Patient ID:?[id number]. Site :?1945 Study:?CT-Head w/o-01/20/2024 2:56:54 PM Ordering Physician:Blaine Chávez Final Report: INDICATION: Fall, head injury TECHNIQUE: CT head without contrast. COMPARISON: None. FINDINGS: CSF spaces: Within normal limits for age. Brain parenchyma: The tovar-white differentiation is normal. No sign of mass, hemorrhage, or midline shift. Mild cerebral atrophy. Skull base and calvarium: The visualized paranasal sinuses and mastoid air cells demonstrate no acute or significant findings. The visualized orbits are grossly unremarkable. No skull fractures. Atherosclerosis IMPRESSION: 1. No calvarial fracture or intracranial bleed. 2. Mild cerebral atrophy. Please note that all CT scans at this facility use dose modulation, iterative reconstruction, and/or weight-based dosing when appropriate to reduce radiation dose to as low as reasonably achievable. Dictated by Roland Magallanes MD @ 01/20/2024 3:06:11 PM Signed by:?Roland Magallanes MD @01/20/2024 3:06:11 PM (Electronic Signature)
[2024-01-20 14:46] LABS: Troponin, Point-of-Care* 0.04 ng/ml (0.01-0.04)
[2024-01-20 14:58] LABS: PCR FLU A Negative PCR FLU A (Negative); PCR FLU B Negative PCR FLU B (Negative); PCR RSV Negative PCR RSV (Negative); SARS PCR* Negative SARS-CoV-2 (Negative)
[2024-01-20 15:00] LABS: HCO3 VBG 23 mmol/L (21-28); PCO2 VBG 30 mmHG (40-50); PO2 VBG < 30.1 mmHG (25-47); pH VBG 7.482 (7.32-7.43)
[2024-01-20 15:02] LABS: Eosinophils Absolute Auto 0.01 K/uL (0.00-0.50); Eosinophils Percent Auto 0.2 % (0.0-7.0); Hematocrit 16.3 % (37.0-53.0); Immature Granulocytes Abs Auto 0.27 K/uL (0.00-0.30); Immature Granulocytes Pct Auto 4.1 %; Lymphocytes Percent Auto 17.9 % (20-44); Mean Corpuscular HGB Conc 33 gm/dL (32-36); Mean Corpuscular Hemoglobin 31 pg (26-34); Mean Corpuscular Volume 95 fL (80-100); Monocytes Percent Auto 64.9 % (0.0-11.0); Neutrophils Percent Auto 12.9 % (42.0-72.0); RDW Coefficient of Variation % 17.7 % (11.5-15.5); Red Blood Count 1.72 m/uL (4.30-5.90); White Blood Count* 6.61 K/uL (4.50-11.00)
--- NOTE | 2024-01-20 15:06 | XR_ITS ---
Patient: DANA MARINO Facility:?[facility] Patient ID:?[id number] Site Patient ID:?[id number]. Site :?1945 Study:?XRay-Chest 2V-01/20/2024 3:31:41 PM Ordering Physician:MIKE Final Report: INDICATION: Cough, fever and weakness. History of lymphoma. COMPARISON: None available. TECHNIQUE: 2 views. FINDINGS: Medical Devices: Right Port-A-Cath with the catheter tip at the cavoatrial junction. Lung Volumes: Adequate inspiration. No significant atelectasis. Lungs: Clear lungs. Pleura and Pleural spaces: No significant pleural effusion. No pneumothorax. Mediastinum: Normal cardiomediastinal silhouette. Bony Thorax and Soft Tissues: No significant incidental findings. Median sternotomy. IMPRESSION: No imaging findings pertinent to the indication for the exam or significant unrelated findings. Incidental findings described in the body of the report. Dictated by Lon Adams MD @ 01/20/2024 3:45:51 PM Signed by:?Lon Adams MD @01/20/2024 3:45:51 PM (Electronic Signature)
[2024-01-20 15:43] LABS: Hemoglobin* 5.4 gm/dL (13.5-17.5); Platelet Count* 9 K/uL (140-440)
[2024-01-20 15:45] LABS: Anion Gap 7 mEq/L (7-15); Blood Urea Nitrogen* 25 mg/dL (7-30); Calcium* 8.4 mg/dL (8.4-10.6); Carbon Dioxide* 23 mmol/L (20-32); Chloride* 108 mmol/L (96-114); Creatinine* 1.4 mg/dL (0.5-1.5); Estimated Glomerular Filt Rate 51 ml/min; Glucose* 141 mg/dL (60-115); Sodium* 138 mmol/L (135-149)
[2024-01-20 15:50] LABS: Slide Review Reflex Yes
[2024-01-20 15:51] LABS: Slide Review Acceptable Review (Acceptable)
[2024-01-20 15:52] LABS: INR 1.21 (0.91-1.10); Prothrombin Time 16.1 Seconds
[2024-01-20 15:53] LABS: Partial Thromboplastin Time* 34 Seconds (23-33)
[2024-01-20 16:02] LABS: D Dimer Quantitative* 10.48 ug/ml (0.00-0.50)
--- NOTE | 2024-01-20 16:02 | CT_ITS ---
Patient: DANA MARINO Facility:?[facility] Patient ID:?[id number] Site Patient ID:?[id number]. Site :?1945 Study:?CT-Chest PE STUDY-01/20/2024 5:18:19 PM Ordering Physician:MIKE Final Report: INDICATION: Cough and shortness of breath. History of lymphoma. COMPARISON: 11/14/2021 TECHNIQUE: CT pulmonary angiography with 95 cc of Isovue 370 intravenous contrast. Please note that all CT scans at this facility use dose modulation, iterative reconstruction, and/or weight-based dosing when appropriate to reduce radiation dose to as low as reasonably achievable. FINDINGS: Pulmonary Arterial Vasculature: Opacification of the pulmonary arterial tree is adequate. No intraluminal pulmonary arterial filling defect is identified to indicate a pulmonary embolism. Visualized Lower Neck: No lower cervical adenopathy. Mediastinum: Thoracic aorta and pulmonary trunk are normal in caliber. Cardiomegaly. Moderate left anterior descending atherosclerotic coronary artery calcification. Trachea and esophagus are normal in appearance. There is no mediastinal lymphadenopathy. Lungs and Pleura: Bilateral upper lung predominant multifocal peripheral ground- glass opacities. Upper lung distribution is atypical for COVID pneumonia. Other infectious and noninfectious processes are included in the differential diagnosis. In this patient with a history of lymphoma, opportunistic infections are also included in the differential if the patient is immunosuppressed. Bilateral dependent hypoventilatory changes are noted. No significant pleural effusion. No pneumothorax. Skeleton: No significant osseous findings. Median sternotomy. Right humeral head suture anchor. Thoracic soft tissues: In-situ right Port-A-Cath. No axillary adenopathy. Visualized Upper Abdomen: No significant findings. The stomach is nondistended which is thought to account for apparent wall thickening of the gastric body. IMPRESSION: 1. No evidence of pulmonary embolism. 2. Bilateral upper lung predominant multifocal peripheral ground-glass opacities. Upper lung distribution is atypical for COVID pneumonia. Other infectious and noninfectious processes are included in the differential diagnosis. In this patient with a history of lymphoma, opportunistic infections are also included in the differential if the patient is immunosuppressed. 3. Incidental findings described above. Please note that all CT scans at this facility use dose modulation, iterative reconstruction, and/or weight-based dosing when appropriate to reduce radiation dose to as low as reasonably achievable. Dictated by Lon Adams MD @ 01/20/2024 5:49:26 PM Signed by:?Lon Adams MD @01/20/2024 5:49:26 PM (Electronic Signature)
[2024-01-20 16:03] LABS: Fecal Occult Blood* Positive (Negative)
[2024-01-20 16:09] LABS: Appearance Urine Slightly Cloudy (Clear); Bilirubin Urine Negative (Negative); Blood Urine Trace-lysed (Negative); Color Urine Amber (Yellow); Glucose Urine Negative (Negative); Ketones Urine Negative (Negative); Leukocyte Esterase Urine Negative (Negative); Nitrite Urine Negative (Negative); Protein Urine 2+ (Negative); Specific Gravity Urine 1.015 (1.000-1.030); Urobilinogen Urine 0.2 (0.2-1.0)
[2024-01-20 16:11] LABS: Procalcitonin* 1.19 ng/mL (<0.50)
[2024-01-20 16:12] LABS: NT Pro B Type NatriureticPept* 2420 pg/mL
[2024-01-20] MEDS: 0.9 % SODIUM CHLORIDE 500 ML 500 ML IV (16:15)
[2024-01-20 16:24] LABS: Squamous Epithelial Cell Urine Few (None-Few); WBC Urine 0-2 (0-5)
[2024-01-20 16:25] LABS: Coarse Granular Casts Urine Moderate
[2024-01-20] MEDS: ACETAMINOPHEN 500 MG TABLET 1000 MG PO (17:55)
[2024-01-20 18:09] LABS: Hematocrit 16.4 % (37.0-53.0); Immature Granulocytes Abs Auto 0.21 K/uL (0.00-0.30); Immature Granulocytes Pct Auto 4.2 %; Lymphocytes Absolute Auto 1.34 K/uL (0.90-2.90); Lymphocytes Percent Auto 26.8 % (20-44); Mean Corpuscular HGB Conc 33 gm/dL (32-36); Mean Corpuscular Hemoglobin 31 pg (26-34); Mean Corpuscular Volume 95 fL (80-100); Monocytes Percent Auto 55.6 % (0.0-11.0); Neutrophils Percent Auto 13.4 % (42.0-72.0); RDW Coefficient of Variation % 17.6 % (11.5-15.5); Red Blood Count 1.73 m/uL (4.30-5.90)
[2024-01-20 18:11] LABS: Troponin, Point-of-Care* 0.04 ng/ml (0.01-0.04)
[2024-01-20 18:12] LABS: Hemoglobin* 5.4 gm/dL (13.5-17.5)
[2024-01-20 18:13] LABS: Platelet Count* 8 K/uL (140-440); Slide Review Reflex No
== END 2024-01-20 19:50 | disposition other institution (70) ==
PROVIDERS: Emergency Medicine Emergency Medical Services; Emergency Provider Family Medicine; PCP Family Medicine
DX: R50.9 Fever, unspecified (principal); D64.9 Anemia, unspecified; D69.6 Thrombocytopenia, unspecified
CPT/HCPCS: 36415; 70450; 71046; 71275; 74019; 80048; 81001; 82270; 82803; 83605; 83880; 84145; 84484; 85025; 85379; 85610; 85730; 86850; 86900; 86901; 87040; 87631; 93005; 94761; 96365; 99285; A9270; J0743; J7030; Q9967

== ENCOUNTER 2024-01-20 19:27 | Outpatient (CLI) | payer MEDICARE, BC, SELFPAY | END 2024-01-20 19:28 | disposition home or self-care (01) | LOC: AMB 01-22 07:54 | PROVIDERS: PCP Family Medicine; Visit Provider Emergency Medicine Emergency Medical Services | DX: R05.9 Cough, unspecified (principal); R50.9 Fever, unspecified; R53.1 Weakness | CPT/HCPCS: A0425; A0427 ==